=== PATIENT | male | born 2000 | race Caucasian/White ===

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

== ENCOUNTER 2020-10-06 13:54 | Emergency (ER) | payer MEDICAID ==
--- NOTE | 2020-10-06 14:17 | ED Physician Documentation ---
PD HPI MALE - Stated complaint Stated Complaint: UNABLE TO VOID - Chief complaint Chief Complaint: UTI - History obtained from History obtained from: Patient - History of Present Illness Timing - onset: How many days ago (2) Timing - duration: Days (2) Timing - details: Gradual onset, Still present, Waxing and waning (complains of difficultly voiding the past 1 1/2 - 2 days. States has to force urination. No blood. Not pain but feeling pressure in bladder.) Associated symptoms: Urinary frequency, Unable to urinate. No: Hematuria, Discharge, Genital sore / lesion, Back pain PD HPI MALE CONTRIB FACTORS: Sexually active Similar symptoms before: Has not had sx before Review of Systems Constitutional: denies: Fever, Chills, Myalgias Nose: denies: Rhinorrhea / runny nose, Congestion Throat: denies: Sore throat Respiratory: denies: Cough : reports: Unable to Void (feeling having to strain for urine out. Only small amounts at a time.). denies: Dysuria Skin: denies: Rash Musculoskeletal: reports: Extremity swelling (states feeling swelling of legs, some of hands, and around the eyes/face.) PD PAST MEDICAL HISTORY - Past Medical History Cardiovascular: Hypertension : None Psych: Depression, Anxiety, ADD/ADHD - Past Surgical History HEENT: Tonsil/Adenoidectomy - Present Medications Home Medications: Ambulatory Orders Medication Instructions Recorded Confirmed Docusate Sodium 100Mg Capsule 100 mg PO DAILY #15 capsule 10/06/20 [Colace 100Mg Capsule] Doxycycline Hyclate 100 mg PO BID #14 tablet. 10/06/20 - Allergies Allergies/Adverse Reactions: Allergies Allergy/AdvReac Type Severity Reaction Status Date / Time No Known Drug Allergies Allergy Verified 10/06/20 14:11 - Social History Does the pt smoke?: No Smoking Status: Never smoker Does the pt drink ETOH?: No Does the pt have substance abuse?: No PD ED PE NORMAL - Vitals Vital signs reviewed: Yes - General General: Alert and oriented X 3, No acute distress, Well developed/nourished - HEENT HEENT: Pharynx benign - Neck Neck: Supple, no meningeal sign, No adenopathy - Cardiac Cardiac: RRR, No murmur - Respiratory Respiratory: No respiratory distress - Abdomen Abdomen: Normal bowel sounds, Soft, Non tender, Non distended - Derm Derm: Normal color, Warm and dry, No rash, Other (minimal edema in both ankles. Perhaps some fullness of face but no periorbital edema per se. ) - Extremities Extremities: No tenderness to palpate, Normal ROM s pain, No calf tenderness / cord, Other (1 + edema in ankles. ) Results - Vitals Vitals: Vital Signs - 24 hr 10/06/20 10/06/20 14:07 15:27 Temperature 37.0 C Heart Rate 86 80 Respiratory 16 16 Rate Blood Pressure 145/71 H 141/80 H O2 Saturation 96 99 Oxygen O2 Source Room air - Labs Labs: Laboratory Tests 10/06/20 10/06/20 14:50 15:15 Sodium 140 Potassium 4.3 Chloride 101 Carbon Dioxide 28 Anion Gap 11.0 BUN 17 Creatinine 0.7 Estimated GFR (MDRD) 144 Glucose 103 H Calcium 9.4 Total Bilirubin 1.0 AST 36 ALT 62 H Alkaline Phosphatase 66 Total Protein 7.0 Albumin 4.0 Globulin 3.0 Albumin/Globulin Ratio 1.3 Urine Color YELLOW Urine Clarity CLEAR Urine pH 6.0 Ur Specific Fossil 1.025 Urine Protein NEGATIVE Urine Glucose (UA) NEGATIVE Urine Ketones NEGATIVE Urine Occult Blood NEGATIVE Urine Nitrite NEGATIVE Urine Bilirubin NEGATIVE Urine Urobilinogen 0.2 (NORMAL) Ur Leukocyte Esterase NEGATIVE Ur Microscopic Review NOT INDICATED Urine Culture Comments NOT INDICATED PD MEDICAL DECISION MAKING - ED course Complexity details: reviewed results, considered differential (bladder scanner showing just mild amount at 137 and he then voided about 3 oz. so not significant retention. Given dysuria, presume urethritis. COmplains of edema/weight gain, but no signs of kidney failure, proteinuria, nor allergic reation. ), d/w patient Departure - Departure Disposition: 01 Home, Self Care Clinical Impression: Dysuria, Weight gain Condition: Stable Record reviewed to determine appropriate education?: Yes Instructions: ED Dysuria Uncertain Cause Follow-Up: VARINDER MASON PA-C [Primary Care Provider] - Prescriptions: Docusate Sodium 100Mg Capsule [Colace 100Mg Capsule] 100 mg PO DAILY #15 capsule Doxycycline Hyclate 100 mg PO BID #14 tablet. Comments: Your kidney function and electrolytes are normal. No signs of kidney failure. The bladder scanner showed appropriate emptying of the bladder. I presume therefore your difficulty urinating may relate to a bladder infection. It can sometimes have difficulty urinating if there is a lot of stool present around the bladder to. Stay well hydrated. Continue usual medications. Add docusate stool softener daily for the next week or 2. Also doxycycline antibiotic twice daily for a week for possible infection. Recheck if not improved well over the next few days and return sooner if worsening. Discharge Date/Time: 10/06/20 15:27
[2020-10-06] MEDS ORDERED: LORazepam 1 MG TABLET PO STA (14:35)
[2020-10-06 15:09] LABS: ALBUMIN/GLOBULIN RATIO 1.3 (1.0-2.2); CALCIUM 9.4 mg/dL (8.5-10.3); CREATININE 0.7 mg/dL (0.6-1.2)
[2020-10-06] MEDS ORDERED: DOXYCYCLINE 100 MG TABLET PO STA (15:17)
[2020-10-06] MEDS ORDERED: DOCUSATE SODIUM 100 MG CAPSULE PO STA (15:17)
[2020-10-06 15:28] VITALS: BP 141/80
[2020-10-06 15:30] LABS: BILIRUBIN,URINE NEGATIVE (NEGATIVE); GLUCOSE, URINE (UA) NEGATIVE (NEGATIVE); KETONES,URINE (UA) NEGATIVE (NEGATIVE); LEUKOCYTE ESTERASE, URINE NEGATIVE (NEGATIVE); NITRITE,URINE NEGATIVE (NEGATIVE); OCCULT BLOOD,URINE NEGATIVE (NEGATIVE); PROTEIN,URINE NEGATIVE (NEGATIVE); UROBILINOGEN,URINE 0.2 (NORMAL) E.U./dL (NORMAL)
[2020-10-06 15:36] LABS: CLARITY,URINE CLEAR (CLEAR)
== END 2020-10-06 15:27 | disposition home or self-care (01) ==
LOC: ED 13:54
DX: R30.0 Dysuria (principal); R63.5 Abnormal weight gain; I10 Essential (primary) hypertension
CPT/HCPCS: 36415; 51798; 80053; 81003; 99283; 99284; A9270; J8499; 81001; 87086